=== PATIENT | female | born 1945 | race Caucasian/White ===

== ENCOUNTER 2020-08-03 15:24 | Inpatient (IN) ==
[2020-08-03] MEDS ORDERED: Acetaminophen 325 MG TABLET PO PRN (22:42)
[2020-08-03] MEDS ORDERED: Ondansetron ODT 4 MG TAB.RAPDIS SL PRN (22:42)
[2020-08-03] MEDS ORDERED: Naloxone 0.4 MG/ML INJ IVP PRN (22:42)
[2020-08-03] MEDS ORDERED: Ipratropium/Albuterol Neb 3 ML IH PRN (22:47)
[2020-08-03] MEDS: methylPREDNISolone 125 MG/2 ML VIAL IVP SCH (23:33)
[2020-08-03] MEDS: Azithromycin 500 MG in 0.9 % Sodium Chloride 250 ML IVPB SCH (23:34)
[2020-08-04] MEDS ORDERED: Haloperidol Lactate 5 MG/ML VIAL IVP ONE (01:36)
[2020-08-04 03:06] LABS: Adenovirus Not Detected (Not Detect); Bordetella Pertussis Not Detected (Not Detect); Chlamydophila pneumoniae Not Detected (Not Detect); Coronavirus 229E Not Detected (Not Detect); Coronavirus HKU1 Not Detected (Not Detect); Coronavirus NL63 Not Detected (Not Detect); Coronavirus OC43 Not Detected (Not Detect); Human Metapneumovirus Not Detected (Not Detect); Human Rhinovirus/Enterovirus Not Detected (Not Detect); Influenza A Subtype 2009 H1 Not Detected (Not Detect); Influenza B Not Detected (Not Detect); Mycoplasma pneumoniae Not Detected (Not Detect); Parainfluenza Virus 1 Not Detected (Not Detect); Parainfluenza Virus 2 Not Detected (Not Detect); Parainfluenza Virus 3 Not Detected (Not Detect); Parainfluenza Virus 4 Not Detected (Not Detect); Respiratory Syncytial Virus Not Detected (Not Detect)
[2020-08-04] MEDS ORDERED: *HR* LORazepam 2 MG/ML VIAL IVP ONE (03:24)
[2020-08-04 04:44] LABS: Basophils % 0.4 %; Eosinophils % 0.6 %; Hematocrit 35.4 % (35.3-44.9); Hemoglobin 10.2 g/dL (11.5-15.4); Immature Granulocytes % 0.2 % (0-4); Lymphocytes # 0.2 K/mcL (0.6-4.6); Lymphocytes % 4.5 %; Mean Corpuscular HGB Conc 28.8 g/dL (31.6-35.5); Mean Corpuscular Volume 107.6 fL (83.0-100.0); Mean Platelet Volume 10.3 fL (9.4-12.4); Monocytes # 0.1 K/mcL (0.0-1.3); Monocytes % 1.3 %; Neutrophils # 4.9 K/mcL (1.6-8.9); Platelet Count 150 K/mcL (140-400); Red Blood Count 3.29 M/mcL (3.82-4.97); Red Cell Distribution Width 12.2 % (11.5-14.5); White Blood Count 5.3 K/mcL (4.3-11.1)
[2020-08-04 04:46] LABS: Prothrombin Time 11.2 Seconds (9.4-12.1)
[2020-08-04 04:53] LABS: Alanine Aminotransferase 16 Units/L (7-52); Albumin 3.7 g/dL (3.5-5.7); Albumin/Globulin Ratio 1.8 (1.1-2.2); Alkaline Phosphatase 55 Units/L (34-104); Aspartate Amino Transferase 18 Units/L (13-39); BUN/Creatinine Ratio 43 (6-26); Bilirubin,Total 0.5 mg/dL (0.3-1.0); Blood Urea Nitrogen 15 mg/dL (8-23); Calcium 8.8 mg/dL (8.6-10.3); Carbon Dioxide 39 mEq/L (23-29); Chloride 97 mEq/L (98-107); Chol/HDL Ratio 2.7 (0-4.9); Cholesterol 171 mg/dL (< 200); Globulin 2.1 g/dL (2.4-3.5); Glucose 88 mg/dL (70-105); HDL Cholesterol 64 mg/dL (40-59); LDL Cholesterol,Calculated 90 mg/dL (< 100); Magnesium 1.7 mg/dL (1.6-2.6); Osmolality,Calculated 296 (280-300); Phosphorous 2.5 mg/dL (2.7-4.5); Potassium 3.9 mEq/L (3.5-5.1); Sodium 143 mEq/L (136-145); Total Protein 5.8 g/dL (6.4-8.9); Triglycerides 84 mg/dL (< 150); eGFR For African Americans > 60 (> 60); eGFR For Non-African Americans > 60 (> 60)
[2020-08-04 05:05] LABS: Thyroid Stimulating Hormone 3.141 mcIU/mL (0.340-5.600)
[2020-08-04 05:31] LABS: Anisocytosis 1+ (Not Present); Hypochromasia Present (Not Present); Large Platelets Present (Not Present); Platelet Estimate Normal (Normal)
[2020-08-04 08:29] LABS: ABG Base Excess 12 mEq/L (-2 to 3); ABG HCO3 43 mEq/L (21-27); ABG Oxygen Saturation 95 % (95-98); ABG PCO2 97 mmHg (35-45); ABG PH 7.26 pH Units (7.32-7.45); ABG PO2 90 mmHg (85-104); ABG TCO2 46 mEq/L (20-26)
[2020-08-04] MEDS: (Roflumilast [Daliresp] 500 MCG) PO SCH (09:35)
[2020-08-04] MEDS: methylPREDNISolone 125 MG/2 ML VIAL IVP SCH ×3 (09:37→23:49)
[2020-08-04] MEDS: Aspirin Enteric Coated 81 MG Tablet PO SCH (09:38)
[2020-08-04] MEDS: cilostazoL 100 MG TABLET PO SCH ×2 (09:38→20:43)
[2020-08-04] MEDS: Apixaban 5 MG TABLET PO SCH ×2 (09:38→20:42)
[2020-08-04] MEDS: Metoprolol XL (24 HR) Succ 50 MG TAB.ER.24H PO SCH (09:38)
[2020-08-04] MEDS: Ipratropium/Albuterol Neb 3 ML IH SCH ×5 (10:31→23:44)
[2020-08-04] MEDS: Budesonide/Formoterol 160/4.5 1 PUFF INH IH SCH ×2 (11:18→20:25)
[2020-08-04] MEDS: Azithromycin 500 MG in 0.9 % Sodium Chloride 250 ML IVPB SCH (23:50)
[2020-08-05] MEDS: Ipratropium/Albuterol Neb 3 ML IH SCH ×6 (03:44→23:56)
[2020-08-05 05:04] LABS: ABG Base Excess 16 mEq/L (-2 to 3); ABG HCO3 44 mEq/L (21-27); ABG Oxygen Saturation 97 % (95-98); ABG PCO2 74 mmHg (35-45); ABG PH 7.38 pH Units (7.32-7.45); ABG PO2 96 mmHg (85-104); ABG TCO2 46 mEq/L (20-26)
[2020-08-05 07:25] LABS: Hematocrit 31.2 % (35.3-44.9); Hemoglobin 9.6 g/dL (11.5-15.4); Mean Corpuscular HGB Conc 30.8 g/dL (31.6-35.5); Mean Corpuscular Hemoglobin 30.5 pg (28.0-33.3); Mean Platelet Volume 10.4 fL (9.4-12.4); Platelet Count 178 K/mcL (140-400); Red Blood Count 3.15 M/mcL (3.82-4.97); Red Cell Distribution Width 12.6 % (11.5-14.5); White Blood Count 7.4 K/mcL (4.3-11.1)
[2020-08-05] MEDS ORDERED: Isovue-370 500 ML BOTTLE IVP ONE (07:38)
[2020-08-05 08:05] LABS: BUN/Creatinine Ratio 67 (6-26); Blood Urea Nitrogen 34 mg/dL (8-23); Calcium 9.2 mg/dL (8.6-10.3); Carbon Dioxide 40 mEq/L (23-29); Chloride 97 mEq/L (98-107); Glucose 175 mg/dL (70-105); Magnesium 1.9 mg/dL (1.6-2.6); Osmolality,Calculated 306 (280-300); Phosphorous 2.9 mg/dL (2.7-4.5); Potassium 4.2 mEq/L (3.5-5.1); Sodium 142 mEq/L (136-145); eGFR For African Americans > 60 (> 60); eGFR For Non-African Americans > 60 (> 60)
[2020-08-05 08:31] LABS: Bacteria,Urine Few per hpf (None-Few); Bilirubin,Urine Negative (Negative); Blood,Urine Negative (Negative); Clarity,Urine Clear (Clear); Color,Urine Yellow (Yellow); Glucose,Urine (UA) Normal (Normal); Ketones,Urine 20 mg/dL (Negative); Leukocyte Esterase,Urine Small (Negative); Mucus,Urine Few per lpf (None-Few); Nitrite,Urine Negative (Negative); Protein,Urine 30 mg/dL (Neg-Trace); RBC,Urine 0-3 per hpf (0-3); Specific Gravity,Urine 1.029 (1.010-1.025); Squamous Epithelial Cell,Urine Few per hpf (None-Few); Urobilinogen,Urine Normal (Normal); WBC,Urine 0-3 per hpf (0-3)
[2020-08-05] MEDS: Aspirin Enteric Coated 81 MG Tablet PO SCH (08:38)
[2020-08-05] MEDS: methylPREDNISolone 125 MG/2 ML VIAL IVP SCH ×3 (08:38→23:07)
[2020-08-05] MEDS: Metoprolol XL (24 HR) Succ 50 MG TAB.ER.24H PO SCH (08:39)
[2020-08-05] MEDS: (Roflumilast [Daliresp] 500 MCG) PO SCH (08:39)
[2020-08-05] MEDS: cilostazoL 100 MG TABLET PO SCH ×2 (08:39→20:39)
[2020-08-05] MEDS: Apixaban 5 MG TABLET PO SCH ×2 (08:39→20:39)
[2020-08-05] MEDS: Budesonide/Formoterol 160/4.5 1 PUFF INH IH SCH ×2 (11:39→20:02)
[2020-08-05] MEDS: Nicotine 14 MG PATCH.TD24 TD SCH (12:11)
[2020-08-05] MEDS: Azithromycin 500 MG in 0.9 % Sodium Chloride 250 ML IVPB SCH (23:08)
[2020-08-06] MEDS: Ipratropium/Albuterol Neb 3 ML IH SCH ×4 (03:55→22:14)
[2020-08-06 06:26] LABS: Hematocrit 31.1 % (35.3-44.9); Hemoglobin 9.3 g/dL (11.5-15.4); Immature Granulocytes % 0.3 % (0-4); Lymphocytes # 0.2 K/mcL (0.6-4.6); Lymphocytes % 1.9 %; Mean Corpuscular HGB Conc 29.9 g/dL (31.6-35.5); Mean Corpuscular Hemoglobin 30.1 pg (28.0-33.3); Mean Corpuscular Volume 100.6 fL (83.0-100.0); Mean Platelet Volume 10.4 fL (9.4-12.4); Monocytes # 0.2 K/mcL (0.0-1.3); Monocytes % 2.3 %; Neutrophils # 8.7 K/mcL (1.6-8.9); Platelet Count 176 K/mcL (140-400); Red Blood Count 3.09 M/mcL (3.82-4.97); Red Cell Distribution Width 13.6 % (11.5-14.5); Segmented Neutrophils % 95.5 %; White Blood Count 9.1 K/mcL (4.3-11.1)
[2020-08-06 06:43] LABS: ABG Base Excess 17 mEq/L (-2 to 3); ABG HCO3 44 mEq/L (21-27); ABG Oxygen Saturation 95 % (95-98); ABG PCO2 66 mmHg (35-45); ABG PH 7.43 pH Units (7.32-7.45); ABG PO2 77 mmHg (85-104); ABG TCO2 46 mEq/L (20-26)
[2020-08-06 06:54] LABS: % Iron Saturation 11 % (15-50); BUN/Creatinine Ratio 59 (6-26); Blood Urea Nitrogen 24 mg/dL (8-23); Calcium 9.4 mg/dL (8.6-10.3); Carbon Dioxide 42 mEq/L (23-29); Chloride 99 mEq/L (98-107); Glucose 159 mg/dL (70-105); Iron 39 mcg/dL (50-170); Magnesium 2.1 mg/dL (1.6-2.6); Osmolality,Calculated 309 (280-300); Sodium 146 mEq/L (136-145); Transferrin 260 mg/dL (203-362); eGFR For African Americans > 60 (> 60); eGFR For Non-African Americans > 60 (> 60)
[2020-08-06 07:06] LABS: Ferritin 41 ng/mL (10-120)
[2020-08-06 07:10] LABS: Folate 16.1 ng/mL (3.0-16.0)
[2020-08-06] MEDS: Budesonide/Formoterol 160/4.5 1 PUFF INH IH SCH ×2 (07:41→22:14)
[2020-08-06] MEDS ORDERED: Iron Sucrose Complex 400 MG in 0.9 % Sodium Chloride 250 ML IVPB ONE (07:44)
[2020-08-06] MEDS ORDERED: Potassium Phosphate 44 MEQ in 0.9 % Sodium Chloride 250 ML IVPB ONE (07:44)
[2020-08-06] MEDS: methylPREDNISolone 125 MG/2 ML VIAL IVP SCH ×3 (10:13→23:28)
[2020-08-06] MEDS: Aspirin Enteric Coated 81 MG Tablet PO SCH (10:13)
[2020-08-06] MEDS: Nicotine 14 MG PATCH.TD24 TD SCH (10:14)
[2020-08-06] MEDS: Apixaban 5 MG TABLET PO SCH (10:14)
[2020-08-06] MEDS: Metoprolol XL (24 HR) Succ 50 MG TAB.ER.24H PO SCH (10:16)
[2020-08-06] MEDS: cilostazoL 100 MG TABLET PO SCH ×2 (10:16→21:23)
[2020-08-06] MEDS ORDERED: Morphine Sulfate Oral CONC 10 MG/0.5 ML ORAL.SYG SL PRN (14:36)
[2020-08-06] MEDS ORDERED: 0.9 % Sodium Chloride 250 ML ONE (23:25)
[2020-08-06] MEDS: Azithromycin 500 MG in 0.9 % Sodium Chloride 250 ML IVPB SCH (23:27)
[2020-08-07] MEDS: Ipratropium/Albuterol Neb 3 ML IH SCH ×2 (03:46→10:04)
[2020-08-07 05:14] LABS: Red Cell Distribution Width 13.5 % (11.5-14.5)
[2020-08-07 05:16] LABS: Hematocrit 35.2 % (35.3-44.9); Hemoglobin 10.4 g/dL (11.5-15.4); Immature Granulocytes % 0.2 % (0-4); Lymphocytes # 0.3 K/mcL (0.6-4.6); Mean Corpuscular HGB Conc 29.5 g/dL (31.6-35.5); Mean Corpuscular Hemoglobin 31.3 pg (28.0-33.3); Mean Platelet Volume 10.7 fL (9.4-12.4); Monocytes # 0.2 K/mcL (0.0-1.3); Monocytes % 2.7 %; Neutrophils # 8.1 K/mcL (1.6-8.9); Platelet Count 147 K/mcL (140-400); Red Blood Count 3.32 M/mcL (3.82-4.97); Segmented Neutrophils % 94.1 %; White Blood Count 8.6 K/mcL (4.3-11.1)
[2020-08-07 05:40] LABS: BUN/Creatinine Ratio 63 (6-26); Blood Urea Nitrogen 26 mg/dL (8-23); Carbon Dioxide 43 mEq/L (23-29); Chloride 101 mEq/L (98-107); Glucose 134 mg/dL (70-105); Magnesium 2.2 mg/dL (1.6-2.6); Osmolality,Calculated 307 (280-300); Phosphorous 4.8 mg/dL (2.7-4.5); Sodium 145 mEq/L (136-145); eGFR For African Americans > 60 (> 60); eGFR For Non-African Americans > 60 (> 60)
[2020-08-07] MEDS ORDERED: *HR* Enoxaparin 40 MG/0.4 ML SYRINGE SQ SCH (06:00)
[2020-08-07 06:11] LABS: Anisocytosis 1+ (Not Present)
[2020-08-07 06:12] LABS: Hypochromasia Present (Not Present); Platelet Estimate Normal (Normal)
[2020-08-07] MEDS: cilostazoL 100 MG TABLET PO SCH (08:24)
[2020-08-07] MEDS: methylPREDNISolone 125 MG/2 ML VIAL IVP SCH (08:24)
[2020-08-07] MEDS: Nicotine 14 MG PATCH.TD24 TD SCH (08:24)
[2020-08-07] MEDS: Metoprolol XL (24 HR) Succ 50 MG TAB.ER.24H PO SCH (08:24)
[2020-08-07] MEDS: Aspirin Enteric Coated 81 MG Tablet PO SCH (08:24)
[2020-08-07] MEDS: Budesonide/Formoterol 160/4.5 1 PUFF INH IH SCH (10:04)
[2020-08-07 11:06] VITALS: BP 97/52
[2020-08-07] MEDS ORDERED: Azithromycin 250 MG TABLET PO SCH (23:00)
[2020-08-08] MEDS ORDERED: *HR* Enoxaparin 30 MG/0.3 ML SYRINGE SQ SCH (06:00)
== END 2020-08-07 13:29 | disposition hospice, home (50) | DRG 189 ==
LOC: 2ANU → SUATTDRO 08-04 09:43 → 2ANU 08-06 19:00
PROVIDERS: ADMIT Student in an Organized Health Care Education/Training Program; ATTEND Internal Medicine